=== PATIENT | male | born 1985 | race African-American/Black ===

== ENCOUNTER 2021-06-22 20:11 | Emergency (ER) | payer OTHER ==
[~2021-06-22] VITALS: Ht 182.9 cm; Wt 108.7 kg
[2021-06-22 20:13] VITALS: BP 130/100
[2021-06-22] MEDS ORDERED: OLAN15TA13 PO (20:22)
[2021-06-22] MEDS ORDERED: TRAZ1TAB12 GT (20:23)
[2021-06-22] MEDS ORDERED: HYDR50TA70 PO (20:23)
== END 2021-06-23 06:28 | disposition home or self-care (01) ==
LOC: M ED 20:11
DX: F43.0 Acute stress reaction (principal); F41.8 Other specified anxiety disorders; F32.A Depression, unspecified; F12.10 Cannabis abuse, uncomplicated

== ENCOUNTER 2024-09-02 11:06 | Inpatient (IN) | payer OTHER ==
[~2024-09-02] VITALS: Ht 182.9 cm; Wt 100.0 kg
[~2024-09-02 11:06] MED LIST: HYDR50TA70 PO; OLAN15TA69 PO; TRAZ1TAB12 GT
[2024-09-02 12:05] LABS: HEMATOCRIT 49.7 % (42.0-52.0); HEMOGLOBIN 16.4 g/dl (13.5-17.5); MEAN CORPUSCULAR VOLUME 87.8 fl (80.0-96.0); PLATELET COUNT, AUTOMATED 261 10^3/uL (150-450); RED BLOOD COUNT 5.66 10^6/uL (4.30-6.10); WHITE BLOOD COUNT 8.2 10^3/uL (4.0-10.0)
[2024-09-02 12:21] LABS: AMPHETAMINES LEVEL URINE NEGATIVE (NEGATIVE); BARBITURATES URINE NEGATIVE (NEGATIVE); BENZODIAZEPINES URINE NEGATIVE (NEGATIVE)
[2024-09-02 12:22] LABS: COCAINE METABOLITE URINE NEGATIVE (NEGATIVE); METHADONE URINE NEGATIVE (NEGATIVE); OPIATES URINE NEGATIVE (NEGATIVE); PHENCYCLIDINE URINE NEGATIVE (NEGATIVE)
[2024-09-02 12:27] LABS: ETHYL ALCOHOL (ETHANOL) < 0.003 % (0.000-0.010); SALICYLATE LEVEL < 3.0 MG/DL (<30)
[2024-09-02 12:28] LABS: ALBUMIN 3.8 G/DL (3.2-5.2); ALKALINE PHOSPHATASE 58 U/L (40-129); ALT/SGPT 24 U/L (7.0-40); AST/SGOT 25 U/L (<34); BILIRUBIN,DIRECT 0.3 MG/DL (<0.4); BILIRUBIN,TOTAL 1.1 MG/DL (0.3-1.2); BLOOD UREA NITROGEN 10 MG/DL (9-23); CALCIUM LEVEL 9.2 MG/DL (8.5-10.1); CARBON DIOXIDE LEVEL 30 MMOL/L (20-31); CHLORIDE LEVEL 105 MMOL/L (98-107); CREATININE FOR GFR 0.79 MG/DL (0.70-1.30); GLOMERULAR FILTRATION RATE > 90.0 (>60); GLUCOSE, FASTING 83 MG/DL (60-100); POTASSIUM SERUM 3.8 MMOL/L (3.5-5.1); SODIUM LEVEL 142 MMOL/L (136-145)
[2024-09-02 12:29] LABS: CANNABINOIDS URINE POSITIVE (NEGATIVE); THYROID STIMULATING HORMONE 0.666 uIU/ML (0.55-4.78)
[2024-09-02 13:48] LABS: KETONE, URINE AUTO RFX NEGATIVE (NEGATIVE); LEUKOCYTE ESTERASE UR AUTO RFX NEGATIVE (NEGATIVE); NITRITE, URINE AUTO RFX NEGATIVE (NEGATIVE); RBC, URINE AUTO RFX 0 /HPF (0-3); SQUAM EPITHELIAL CELL UR AURFX 1 /HPF (0-6); WBC, URINE AUTO RFX 1 /HPF (0-3)
[2024-09-02] MEDS ORDERED: HOME MED LIST COMPLETE! XX SCH (15:05)
[2024-09-03] MEDS ORDERED: MAALOX 30 ML SUSP *UDC PO PRN (19:10)
[2024-09-03] MEDS ORDERED: IBUPROFEN 400MG TAB PO PRN (19:10)
[2024-09-03] MEDS ORDERED: MOM 30ML SUSPENSION UDC PO PRN (19:10)
[2024-09-03] MEDS: THIAMINE 100 MG TAB PO SCH (21:00)
[2024-09-03 21:33] VITALS: BP 134/76; TEMP 97.7; O2SAT 98
[2024-09-03 22:00] VITALS: BP 134/76
[2024-09-03] MEDS ORDERED: LORazepam 2 MG TAB PO PRN (22:05)
[2024-09-04 06:29] VITALS: BP 125/69; TEMP 97.6; O2SAT 100
[2024-09-04] MEDS: MULTIVITAMINS/MINERALS THERAP 1 TAB PO SCH (08:27)
[2024-09-04] MEDS: FOLIC ACID 1MG TAB PO SCH (08:27)
[2024-09-04 14:30] VITALS: BP 126/68
[2024-09-04 14:44] VITALS: BP 126/68; TEMP 97.5; O2SAT 99
[2024-09-04] MEDS: diphenhydrAMINE 25MG CAP PO PRN (16:53)
[2024-09-04] MEDS: traZODone 50 MG TAB PO PRN (20:17)
[2024-09-04 21:48] VITALS: BP 139/96
[2024-09-05 06:24] VITALS: BP 140/98; TEMP 97.3; O2SAT 100
[2024-09-05] MEDS: ACETAMINOPHEN 325 MG TAB PO PRN (10:13)
[2024-09-05 14:30] VITALS: BP 143/85
[2024-09-05 15:17] VITALS: BP 143/85; TEMP 98; O2SAT 100
[2024-09-05] MEDS: PRAZOSIN 1 MG CAP PO SCH (21:05)
[2024-09-05] MEDS: traZODone 25MG PER 1/2 TABLET PO PRN (21:05)
[2024-09-05 22:00] VITALS: BP 152/105
[2024-09-06 07:03] VITALS: BP 155/67; TEMP 97.9; O2SAT 97
[2024-09-06 08:07] VITALS: BP 155/67
[2024-09-06] MEDS: LIDOCAINE 5% (LIDODERM) PATCH TD ONE (08:15)
[2024-09-06 15:26] VITALS: BP 150/98; TEMP 97.9; O2SAT 98
[2024-09-06 16:10] VITALS: BP 150/98
[2024-09-07 06:25] VITALS: BP 138/80; TEMP 98; O2SAT 100
[2024-09-07] MEDS: LIDOCAINE 5% (LIDODERM) PATCH TD SCH (10:36)
[2024-09-07 15:49] VITALS: BP 138/78; TEMP 97.9; O2SAT 98
[2024-09-08 06:26] VITALS: BP 171/96; TEMP 97; O2SAT 98
[2024-09-08 15:54] VITALS: BP 134/74; TEMP 98.2; O2SAT 100
[2024-09-08 20:08] VITALS: BP 134/74
[2024-09-08] MEDS: traZODone 100 MG TAB PO PRN (20:10)
[2024-09-09 06:24] VITALS: BP 168/88; TEMP 97.6; O2SAT 100
[2024-09-09] MEDS: ARIPiprazole 10 MG TAB PO SCH (08:41)
[2024-09-09] MEDS ORDERED: PRAZ1CAP PO (12:55)
[2024-09-09] MEDS ORDERED: HYDR-4570 PO (12:55)
[2024-09-09] MEDS ORDERED: TRAZ-257 PO (12:55)
[2024-09-09] MEDS ORDERED: ABIL10TA9 PO (12:55)
== END 2024-09-09 16:58 | disposition home or self-care (01) | DRG 885 ==
LOC: M ED 11:06 → M ED INP 09-03 19:10 → M PSY 09-03 20:17
PROVIDERS: ADMIT Student in an Organized Health Care Education/Training Program; ATTEND Student in an Organized Health Care Education/Training Program
DX: F25.0 Schizoaffective disorder, bipolar type (principal); R45.851 Suicidal ideations; F41.1 Generalized anxiety disorder; F43.10 Post-traumatic stress disorder, unspecified; F12.90 Cannabis use, unspecified, uncomplicated; F10.90 Alcohol use, unspecified, uncomplicated

== ENCOUNTER 2024-12-08 23:53 | Inpatient (IN) | payer OTHER, BC ==
[~2024-12-08] VITALS: Ht 185.4 cm; Wt 108.0 kg
[~2024-12-08 23:53] MED LIST changes: +ABIL10TA9 PO; +HYDR-3364 PO; +PRAZ1CAP PO; +TRAZ-257 PO
[2024-12-09 00:51] LABS: PLATELET COUNT, AUTOMATED 299 10^3/uL (150-450)
[2024-12-09 01:13] LABS: ETHYL ALCOHOL (ETHANOL) 0.010 % (0.000-0.010)
[2024-12-09 01:15] LABS: ALT/SGPT 27 U/L (7.0-40); AST/SGOT 23 U/L (<34); CALCIUM LEVEL 9.1 MG/DL (8.5-10.1); CARBON DIOXIDE LEVEL 26 MMOL/L (20-31); CHLORIDE LEVEL 109 MMOL/L (98-107); CREATININE FOR GFR 0.91 MG/DL (0.70-1.30); GLOMERULAR FILTRATION RATE > 90.0 (>60); POTASSIUM SERUM 3.8 MMOL/L (3.5-5.1); SALICYLATE LEVEL < 3.0 MG/DL (<30); SODIUM LEVEL 146 MMOL/L (136-145)
[2024-12-09 04:52] LABS: APPEARANCE, URINE HAZY (CLEAR); BACTERIA, URINE AUTO 1+ (NEGATIVE); BILIRUBIN, URINE AUTO NEGATIVE (NEGATIVE); BLOOD, URINE BLOOD NEGATIVE (NEGATIVE); GLUCOSE, URINE (UA) AUTO NEGATIVE (NEGATIVE); KETONE, URINE AUTO NEGATIVE (NEGATIVE); LEUKOCYTE ESTERASE, URINE AUTO 2+ (NEGATIVE); MUCUS, URINE SMALL (NEGATIVE); NITRITE, URINE AUTO NEGATIVE (NEGATIVE); PROTEIN, URINE AUTO NEGATIVE (NEGATIVE); RBC, URINE AUTO 2 /HPF (0-3); SPECIFIC GRAVITY URINE AUTO 1.020 (1.002-1.035); SQUAMOUS EPITHELIAL CELL UR AU 8 /HPF (0-6); UROBILINOGEN, URINE AUTO 0.2 mg/dL (0.0-2.0); WBC, URINE AUTO 18 /HPF (0-3)
[2024-12-09 05:23] LABS: AMPHETAMINES LEVEL URINE NEGATIVE (NEGATIVE); BARBITURATES URINE NEGATIVE (NEGATIVE); BENZODIAZEPINES URINE NEGATIVE (NEGATIVE); COCAINE METABOLITE URINE NEGATIVE (NEGATIVE); METHADONE URINE NEGATIVE (NEGATIVE); OPIATES URINE NEGATIVE (NEGATIVE); PHENCYCLIDINE URINE NEGATIVE (NEGATIVE)
[2024-12-09 05:31] LABS: CANNABINOIDS URINE POSITIVE (NEGATIVE)
[2024-12-09] MEDS ORDERED: LISI10TA22 PO (11:22)
[2024-12-09] MEDS ORDERED: HYDR50TA70 PO (11:22)
[2024-12-09] MEDS ORDERED: HOME MED LIST COMPLETE! XX SCH (11:25)
[2024-12-09] MEDS ORDERED: MAALOX 30 ML SUSP *UDC PO PRN (14:35)
[2024-12-09] MEDS ORDERED: MOM 30 ML SUSPENSION UDC PO PRN (14:35)
[2024-12-09] MEDS ORDERED: ACETAMINOPHEN 325 MG TAB PO PRN (14:35)
[2024-12-09] MEDS: traZODone 50 MG TAB PO PRN (20:17)
[2024-12-10 06:00] VITALS: BP 113/58; TEMP 97.7; O2SAT 99
[2024-12-10] MEDS: SERTRALINE HCL 50 MG TAB PO SCH (09:36)
[2024-12-10 21:06] VITALS: BP 142/96
[2024-12-10] MEDS: PRAZOSIN 1 MG CAP PO SCH (21:06)
[2024-12-11 06:28] VITALS: BP 105/69; TEMP 97.6; O2SAT 95
[2024-12-11] MEDS: IBUPROFEN 400 MG TAB PO PRN (08:39)
[2024-12-11 15:09] VITALS: BP 129/86; TEMP 97.9; O2SAT 99
[2024-12-12 06:30] VITALS: BP 115/57; TEMP 97.8; O2SAT 95
[2024-12-12] MEDS ORDERED: PRAZ1CAP PO (10:47)
[2024-12-12] MEDS ORDERED: ABIL1TAB11 PO (10:47)
[2024-12-12] MEDS ORDERED: SERT50TA29 PO (10:47)
== END 2024-12-12 12:34 | disposition home or self-care (01) | DRG 882 ==
LOC: M ED 23:53 → M ED INP 12-09 14:32 → M PSY 12-09 16:00
PROVIDERS: ADMIT General Practice; ATTEND General Practice
DX: F43.10 Post-traumatic stress disorder, unspecified (principal); R45.851 Suicidal ideations; F41.1 Generalized anxiety disorder; F14.90 Cocaine use, unspecified, uncomplicated; F12.90 Cannabis use, unspecified, uncomplicated; F10.10 Alcohol abuse, uncomplicated; F60.2 Antisocial personality disorder; F25.9 Schizoaffective disorder, unspecified; Z76.5 Malingerer [conscious simulation]; Z91.199 Patient's noncompliance with other medical treatment and regimen due to unspecified reason; Z91.148 Patient's other noncompliance with medication regimen for other reason; G47.00 Insomnia, unspecified; F17.200 Nicotine dependence, unspecified, uncomplicated; M54.59 Other low back pain

== ENCOUNTER 2024-12-12 14:20 | Emergency (ER) | payer OTHER, BC ==
[~2024-12-12 14:20] MED LIST changes: +ABIL1TAB11 PO; +LISI10TA22 PO; +SERT50TA29 PO
== END 2024-12-12 14:53 | disposition home or self-care (01) ==
LOC: M ED 14:20
DX: F60.3 Borderline personality disorder (principal); Z76.5 Malingerer [conscious simulation]; F19.10 Other psychoactive substance abuse, uncomplicated; Z79.899 Other long term (current) drug therapy